=== PATIENT | female | born 1985 | race Caucasian/White ===

== ENCOUNTER 2017-08-30 12:25 | Emergency (ER) | payer OTHER ==
[~2017-08-30] VITALS: Ht 167.6 cm; Wt 89.9 kg
[2017-08-30 12:31] VITALS: Ht 167.6 cm; Wt 89.9 kg
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
[2017-08-30 13:37] VITALS: BP 112/77; PULSE 114; TEMP 36.8; O2SAT 93
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
== END 2017-08-30 13:53 | disposition home or self-care (01) ==
LOC: EDBD 12:25 → C.EDA 12:27
DX: S39.012A Strain of muscle, fascia and tendon of lower back, initial encounter (principal); S80.12XA Contusion of left lower leg, initial encounter; R10.9 Unspecified abdominal pain; V43.52XA Car driver injured in collision with other type car in traffic accident, initial encounter

== ENCOUNTER 2019-09-01 16:08 | Inpatient (IN) ==
--- OUTSIDE RECORDS SUMMARY | 2019-09-01 16:12 | External Medical Summary | Continuity of Care Document ---
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) Hyperprolactinemia (253.1) (E22.1) Empty sella (253.8) (E23.6) Decreased testosterone level (790.99) (R79.89) Allergies and Adverse Reactions Demerol TABS (Adverse Event) Reaction: A naphylaxis SEROquel TABS (Allergy) Reaction: Syncop e Medications Rizatriptan Benzoate 10 MG Oral Tablet; TAKE 1 AT ONSET OF HEADACHE - JUNE REPEAT EVERY 2 HOURS NEEDED - MAX 2 PER 24 HOURS Start: Quantity: 12 Refills: 0 Baclofen 10 MG Oral Tablet; TAKE ONE TABLET BY MOUTH TWICE D AILY Start: 04-Jul-2017 Quantity: 60 Refills: 0 Diclofenac Sodium 75 MG Oral Tablet Delayed Release; Take 1 tablet twice daily Start: 04-Jul-2017 Refills: 1 60 Tablet Bottle Ferrous Sulfate 325 (65 Fe) MG Oral Tablet; TAKE 1 TABLET DA SHEA WITH FOOD. Start: 04-Jul-2017 Quantity: 30 Refills: 11 Magnesium Oxide 400 MG Oral Capsule; Take one capsule daily. Start: 04-Jul-2017 Quantity: 30 Refills: 5 Methadone HCl - 40 MG Oral Tablet Soluble; TAKE 1 TABLET MARINA LY DIRECTED. Start: 04-Jul-2017 Refills: 0 Omeprazole 20 MG Oral Capsule Delayed Re lease; TAKE 1 CAPSULE DAILY EVERY MORNING BEFORE BREAKFAST. Start: 04-Jul-2017 Quantity: 30 Refills: 1 Procedures History of Section Status: Comp leted History of lumbar nerve ablation Status: Completed Immunizations PPD On: 22-Nov-2005 Tdap (Boostrix) On: 21-Oct-2015 Influenza On: 16-Nov-2016 Family History Mother Family history of arthritis (V17.7) (Z82.61) Status: Active Family history of emphysema (V17.6) (Z82.5) Status: Active Father Family history of malignant neoplasm of colon (V16.0) (Z80.0 ) Status: Active Grandparent Family history of malignant neoplasm (V16.9) (Z80.9) Status: Active Family history of Cancer of lymphatic and hematopoietic tiss ue Status: Active (202.80) (C96.9) Family history of malignant neoplasm of ovary (V16.41) (Z80. 41) Status: Active Family history of cerebrovascular accident (CVA) (V17.1) (Z8 2.3) Status: Active aunt Family history of multiple sclerosis (V17.2) (Z82.0) Status: Active Family history of cardiac disorder (V17.49) (Z82.49) Status: Active Social History - Smoking Status Never smoked tobacco Plan of Treatment Planned Observations Planned Goals not documented Results No Known Results Results not documented Encounters Appointment; Henrietta Villegas PA-C 12-Jul-2017 11:00 Encounter Diagnosis: Problem not documented
--- OUTSIDE RECORDS SUMMARY | 2019-09-01 16:12 | External Medical Summary | Continuity of Care Document ---
:1985 Author Name Ganesh Brito Address Unavailable Unavailable , Care Team Providers Name Role Phone Nelly ZAYDA Unavailable [email or web address] Assessed Problems:Encounter for preventive health examination [...] SEROquel TABS (Allergy) Reaction: Syncop e Medications Baclofen 10 MG Oral Tablet; TAKE ONE [...] BREAKFAST. Start: 04-Jul-2017 Quantity: 30 Refills: 1 Rizatriptan Benzoate 10 MG Oral Tablet; TAKE 1 AT ONSET OF HEADACHE - JUNE REPEAT EVERY 2 HOURS NEEDED - MAX 2 PER 24 HOURS Start: Quantity: 12 Refills: 0 Procedures History of Section Status: Comp leted [...]
[2019-09-01] MEDS ORDERED: SODIUM CHLORIDE 0.9% 1000ML 2,000 ML IV ONE (18:24)
[2019-09-01] MEDS ORDERED: ACETAMINOPHEN 1,000 MG/100 ML VIAL IV STA (18:24)
[2019-09-01 18:41] LABS: Appearance Urine Clear (Clear); Bacteria Urine Automated Negative (Negative); Bilirubin Urine Negative (Negative); Blood Urine 3+ (Negative); Color Urine Yellow; Epithelial Cell Urine Auto >30 /lpf (0-5); Glucose Urine UA Negative (Negative); Ketones Urine Negative (Negative); Leukocyte Esterase Urine 1+ (Negative); Nitrite Urine Negative (Negative); Protein Urine Negative (Negative); RBC Urine Automated >30 /hpf (0-4); Urobilinogen Urine Negative (Negative)
--- NOTE | 2019-09-01 18:44 | Emergency Department Note ---
Impression & Plan Endometritis following delivery, Complete miscarriage, Iron deficiency anemia, Rh(D) positive ED Provider Note NAME: ILIANA STOVER AGE: 34 SEX: F ARRIVES VIA: Walk-In INFORMANT: Patient, ED PROVIDER(S): Kendrick Duarte MD CHIEF COMPLAINT: Fevers, Abd pain, chest pain, shortness of breath. 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 She has not taken her temp erature but feels chills and body aches. On arrival the patient is uncomfortable but no acute distress, with temperature of 37.7, heart rate 107 and vital signs otherwise stable. On exam she has lower abdominal tenderness without guarding or rebound. Case was discussed Dr. Caraballo, [facility] PNEUMATIC SYSTEMS OPERATOR on-call at [facility] will testing was still pending. Agrees with empiric ABX and given patient's presentation agrees with plan for admission. Will updated upon completion of CTA for chest and CT abd pelvis. EKG without overt acute ischemia. Chest x-ray negative for acute process. WBC 4.1. H/H 7.6/25.7 which is stable from patient's discharge per the patient's report. Platelets 123K similar to prior value in [facility] system. Chemistry without acidosis. Lactate within normal limits. Electrolytes and LFTs unremarkable. Troponin negative/undetectable. Procalcitonin 0.61. UA with epithelial cells. CT a of the chest negative for PE or pneumonia. CT the abdomen pelvis demonstrates enlarged uterus with differential of hemorrhage versus retained products. On reevaluation the patient was improved appearing after IV fluid hydration, APAP, empiric antibiotics. She is agreeable with plan for admission. Dr. Zeger, OB- PNEUMATIC SYSTEMS OPERATOR was updated and will evaluate the patient at the bedside with plan for pelvic US and admission. Triage Nursing notes reviewed and agree them. Additional history obtained from [facility] Prior medical records reviewed Vital Signs: reviewed and remarkable for no significant abnormalities Differential diagnosis: Sepsis, UTI, pneumonia, metabolic, electrolyte abnormalities, cardiac sources, intracerebral event, toxicologic, neurologic, as well as other pathologies. ER treatment provided: See below. Diagnostics interpreted by me: ECG: Sinus tachycardia, 107 bpm, no ectopy, no overt ST elevation or depression, QTC 467, QRS 80. Cardiac Monitoring: An order for continuous cardiac monitoring was placed and demonstrated sinus tachycardia, 107 bpm, no ectopy. Laboratory studies: See below Imaging studies: XR chest 1V portable CLINICAL HISTORY: SEPSIS COMPARISON STUDY: No previous studies for comparison. FINDINGS: The cardiac and mediastinal contours are normal. There is no evidence of focal pulmonary consolidation. There is no evidence of failure. No pleural effusions are visualized.[ IMPRESSION: No active disease in the chest. -- CT abd pelvis IV con only CLINICAL HISTORY: lower abd pain, sepsis, miscarriage 08/29 COMPARISON STUDY: None. TECHNIQUE: The patient was scanned in a dynamic helical fashion during intr avenous administration of 120 cc of Optiray 320. A dose lowering technique was utilized adhering to the principles of ALARA. CT DOSE: FINDINGS: Lower chest: The heart is normal in size and configuration, without pericardial effusion. The lung bases and pleural spaces are clear. Liver: The contrast-enhanced liver is normal in size, contour, and attenuation. There is no intrahepatic biliary ductal dilatation. The hepatic veins and portal veins are patent. Gallbladder: Unremarkable. Spleen: The spleen is enlarged measuring 15.4 cm in length Pancreas: Unremarkable. Adrenal glands: Unremarkable. Kidneys: No solid renal masses are visualized. There is mild fullness the right renal collecting system, likely secondary to ureteral compression from enlarged uterus. Bowel: There are no transition zones indicate bowel obstruction. There is no evidence of acute diverticulitis. The appendix appears normal. Peritoneum: There is no intraperitoneal free air or abdominal ascites. Vasculature: The abdominal aorta is normal in course and caliber. Adenopathy: None. Pelvic viscera: The uterus is enlarged measuring 19.5 x 10.2 cm in the mid sagittal plane. The endometrium appears thickened and heterogeneous. The appearance is nonspecific and could represent hemorrhage or retained products of conception. There is trace gas within the upper vaginal vault/cervix. Skeletal structures: No destructive osseous lesions are seen. IMPRESSION: 1. No evidence of bowel obstruction. No evidence of free air 2. No evidence of acute diverticulitis. No evidence of acute appendicitis. 3. Mild dilatation the right renal collecting system, likely secondary to ureteral compression from enlarged uterus 4. Mild splenomegaly 5. Enlarged uterus measuring 19.5 x 10.2 cm in the sagittal plane. The end ometrium appears thickened and heterogeneous. This could represent hemorrhage or retained products of conception. Clinical correlation in this regard will be necessary. -- CT ANGIOGRAM OF THE CHEST CLINICAL HISTORY: Atypical chest pain. Sepsis. Possible pulmonary embolism. COMPARISON STUDY: Chest x-ray dated 09/01/2019 TECHNIQUE: Following the IV administration of 120 mL of Optiray-320, CT angiogram of the thorax was performed from the thoracic inlet to the lung bases utilizing the pulmonary embolus protocol. Images are reviewed in the axial, sagittal, and coronal planes. IV contrast was administered without complication. MIP imaging was performed. A dose lowering technique was utilized adhering to the principles of ALARA. CT DOSE: 1000.60 mGy.cm FINDINGS: There is mediastinal and hilar lymphadenopathy. An index subcarinal lymph node measures 22 mm in diameter. There was no evidence of thoracic aortic dilatation. There were no pulmonary artery filling defects to indicate acute pulmonary embolism. No pleural effusions are visualized. There is no evidence of focal pulmonary consolidation. There are several solid subpleural and perifissural subcentimeter left lower lobe pulmonary nodules. The largest measures 4 mm. In a low-risk patient, no further follow-up is indicated. Splenomegaly is suspected. IMPRESSION: 1. No evidence of acute pulmonary embolism 2. Unexplained mediastinal and hilar lymphadenopathy 3. Splenomegaly 4. No evidence of focal pulmonary consolidation Consultation(s): Dr. Caraballo, [facility] PNEUMATIC SYSTEMS OPERATOR. 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 She has not taken her temperature but feels chills and body aches. Of note, the patient was tested for COVID-19 and was negative on her admission. ROS: See above HPI for pertinent positives & negatives. A total of 10 systems reviewed and were otherwise negative. PAST MEDICAL HISTORY:See Below PAST SURGICAL HISTORY:See Below FAMILY HISTORY:See Below SOCIAL HISTORY:See Below HOME MEDICATIONS:See Below ALLERGIES:See Below VITALS:See Below PHYSICAL EXAMINATION: GENERAL: Awake, alert, well-appearing, in no distress HENT: Normocephalic, atraumatic. Oropharynx with dry mucous membranes and otherwise unremarkable. . EYES: Normal conjunctiva. Sclera non-icteric. NECK: Supple. No nuchal rigidity. FROM. No JVD. RESPIRATORY: Clear to auscultation. CARDIAC: Tachycardic rate, normal rhythm. Extremities warm and well perfused. Pulses equal. ABDOMEN: Soft, non-distended. Mild lower tenderness to palpation. No rebound or guarding. No masses. RECTAL: Deferred. MUSCULOSKELETAL: Chest examination reveals no tenderness. The back is symmetrical on inspection without obvious abnormality. There is no CVA tendernes s to palpation. No joint edema. LOWER EXTREMITIES: Calves are equal size bilaterally and non-tender. No edema. No discoloration. NEURO: Normal sensorium. No sensory or motor deficits noted. SKIN: No rash or jaundice noted. ED COURSE: Critical Care: I have personally spent greater than 75 minutes of critical care time in the direct management of this patient. This includes bedside care, interpretation of diagnostic studies, and testing, discussion with consultants, patient, and family members, and other required patient management activities. This 75 minutes is in excess of all separately billable procedures. Kendrick Duarte MD Past Med/Surg History Medical History Complete miscarriage (Acute) GERD (gastroesophageal reflux disease) Hepatitis C antibody test positive Hx of migraines Iron deficiency anemia (Acute) Methadone maintenance therapy patient PCOS (polycystic ovarian syndrome) Rh(D) positive (Acute) Splenomegaly Social History Smoking Status: Never smoker Preferred Language: Icelandic Feels Safe at Home: Yes Allergies Allergies Allergy/AdvReac Type Severity Reaction Status Date / Time quetiapine [From Seroquel] AdvReac Severe Sedation Verified 09/01/19 18:23 meperidine [From Demerol] AdvReac Unknown Hypotension Verified 09/01/19 18:23 Home Meds Home Medications Medication Instructions Recorded Confirmed [id number] fumarate-FA 1 tab PO DAILY 09/01/19 09/01/19 [] ferrous sulfate 325 mg PO DAILY 09/01/19 09/01/19 gabapentin 400 mg PO TID 09/01/19 09/01/19 methadone 52 mg PO DAILY 09/01/19 09/01/19 metronidazole 500 mg PO BID 09/01/19 09/01/19 ondansetron HCl 4 mg PO Q8H PRN 09/01/19 09/01/19 pantoprazole 40 mg PO DAILY 09/01/19 09/01/19 rizatriptan 10 mg PO DIRECTED PRN MDD 2 09/01/19 09/01/19 DOSES/24 HOURS tizanidine 6 mg PO Q6H PRN 09/01/19 09/01/19 topiramate 50 mg PO BID 09/01/19 09/01/19 Results & Data (ED) Vital Signs Vital Signs - 24 hr 09/01/19 16:18 09/01/19 18:34 09/01/19 19:28 Temperature 37.7 C H Temperature Source Oral Pulse Rate 107 H 94 H Pulse Rate [Bilateral Apical] Pulse Rhythm Regular Pulse Strength Normal Respiratory Rate 20 20 Respiratory Effort / Characteristics Non-Labored Spontaneous Non-Labored Respiratory Depth Normal Respiratory Pattern Regular Blood Pressure 135/86 Blood Pressure [Left Arm] Blood Pressure Mean 102 Blood Pressure Mean [Left Arm] Blood Pressure Position Sitting Pulse Oximetry 96 96 97 Oxygen Delivery Method Room Air Room Air Room Air Sepsis Recent Fever Within 48 Hours No Sepsis New/Unexplained Change in Mental Status No Sepsis Action Taken by Nursing No Action Required 09/01/19 19:29 09/01/19 20:23 09/01/19 21:11 Temperature Temperature Source Pulse Rate Pulse Rate [Bilateral Apical] 98 H 82 88 Pulse Rhythm Pulse Strength Respiratory Rate 20 18 18 Respiratory Effort / Characteristics Respiratory Depth Respiratory Pattern Blood Pressure Blood Pressure [Left Arm] 121/76 129/82 118/78 Blood Pressure Mean Blood Pressure Mean [Left Arm] 91 97 91 Blood Pressure Position Pulse Oximetry 97 95 97 Oxygen Delivery Method Room Air Room Air Room Air Sepsis Recent Fever Within 48 Hours Sepsis New/Unexplained Change in Mental Status Sepsis Action Taken by Nursing 09/01/19 22:30 09/01/19 22:31 Temperature Temperature Source Pulse Rate Pulse Rate [Bilateral Apical] 81 Pulse Rhythm Pulse Strength Respiratory Rate 20 Respiratory Effort / Characteristics Non-Labored Respiratory Depth Respiratory Pattern Blood Pressure Blood Pressure [Left Arm] 125/83 Blood Pressure Mean Blood Pressure Mean [Left Arm] 97 Blood Pressure Position Pulse Oximetry 97 Oxygen Delivery Method Room Air Sepsis Recent Fever Within 48 Hours Sepsis New/Unexplained Change in Mental Status Sepsis Action Taken by Nursing Laboratory Data Attestation: I reviewed the patient's lab results. Result diagrams: 09/01/19 18:45 09/01/19 18:45 Lab Results 09/01/19 09/01/19 09/01/19 Range/Units 16:29 18:45 18:45 WBC 4.15 L (4.8-10.8) K/uL RBC 3.76 L (4.2-5.4) M/uL Hgb 7.6 L (12.0-16.0) g/dL Hct 25.7 L (37-47) % MCV 68.4 L (80-100) fL MCH 20.2 L (25-34) pg MCHC 29.6 L (32-36) g/dL RDW Std Deviation 42.7 (36.4-46.3) fL RDW Coeff of Ignacio 17.2 H (11.5-14.5) % Plt Count 123 L (130-400) K/uL Immature Gran % (Auto) 0.2 % Neut % (Auto) 74.1 % Lymph % (Auto) 17.8 % Dickenson % (Auto) 6.7 % Eos % (Auto) 1.2 % Baso % (Auto) 0.0 % Neut # (Auto) 3.07 (1.4-6.5) K/uL Lymph # (Auto) 0.74 L (1.2-3.4) K/uL Dickenson # (Auto) 0.28 (0.11-0.59) K/uL Eos # (Auto) 0.05 (0-0.5) K/uL Baso # (Auto) 0.00 (0-0.2) K/uL Immature Gran # (Auto) 0.01 (0.00-0.02) K/uL Platelet Estimate Decreased L (Normal) Polychromasia 1+ Hypochromasia Present Microcytosis Present PT 10.4 (9.0-12.0) Seconds INR 1.0 (0.9-1.1) APTT 26.2 (21.0-31.0) Seconds PTT Ratio 0.9 Sodium (136-145) mmol/L Potassium (3.5-5.1) mmol/L Chloride (98-107) mmol/L Carbon Dioxide (21-32) mmol/L Anion Gap (3-11) BUN (7-18) mg/dl Creatinine (0.6-1.2) mg/dl Est Cr Clr Drug Dosing ml/min Est GFR ( Amer) Est GFR (Non-Af Amer) BUN/Creatinine Ratio (10-20) Glucose (70-99) mg/dl Lactate (0.4-2.0) mmol/L Calcium (8.5-10.1) mg/dl Phosphorus (2.5-4.9) mg/dl Magnesium (1.8-2.4) mg/dl Total Bilirubin (0.2-1) mg/dl Direct Bilirubin (0-0.2) mg/dl AST (15-37) U/L ALT (12-78) U/L Alkaline Phosphatase (45-117) U/L Troponin I (0-0.045) ng/ml Total Protein (6.4-8.2) gm/dl Albumin (3.4-5.0) gm/dl Globulin (2.5-4.0) gm/dl Albumin/Globulin Ratio (0.9-2) Procalcitonin (0-0.5) ng/ml HCG, Quant mIU/ml Urine Color Yellow Urine Appearance Clear (Clear) Urine pH 6.0 (4.5-7.5) Ur Specific Freer 1.010 (1.000-1.030) Urine Protein Negative (Negative) Urine Glucose (UA) Negative (Negative) Urine Ketones Negative (Negative) Urine Blood 3+ H (Negative) Urine Nitrite Negative (Negative) Urine Bilirubin Negative (Negative) Urine Urobilinogen Negative (Negative) Ur Leukocyte Esterase 1+ H (Negative) Urine WBC (Auto) 5-10 H (0-5) /hpf Urine RBC (Auto) >30 H (0-4) /hpf U Hyaline Cast (Auto) 1-5 (0-5) /lpf U Epithel Cells (Auto) >30 H (0-5) /lpf Urine Bacteria (Auto) Negative (Negative) Blood Type Antibody Screen 09/01/19 09/01/19 09/01/19 Range/Units 18:45 18:45 18:45 WBC (4.8-10.8) K/uL RBC (4.2-5.4) M/uL Hgb (12.0-16.0) g/dL Hct (37-47) % MCV (80-100) fL MCH (25-34) pg MCHC (32-36) g/dL RDW Std Deviation (36.4-46.3) fL RDW Coeff of Ignacio (11.5-14.5) % Plt Count (130-400) K/uL Immature Gran % (Auto) % Neut % (Auto) % Lymph % (Auto) % Dickenson % (Auto) % Eos % (Auto) % Baso % (Auto) % Neut # (Auto) (1.4-6.5) K/uL Lymph # (Auto) (1.2-3.4) K/uL Dickenson # (Auto) (0.11-0.59) K/uL Eos # (Auto) (0-0.5) K/uL Baso # (Auto) (0-0.2) K/uL Immature Gran # (Auto) (0.00-0.02) K/uL Platelet Estimate (Normal) Polychromasia Hypochromasia Microcytosis PT (9.0-12.0) Seconds INR (0.9-1.1) APTT (21.0-31.0) Seconds PTT Ratio Sodium 140 (136-145) mmol/L Potassium 3.8 (3.5-5.1) mmol/L Chloride 108 H (98-107) mmol/L Carbon Dioxide 26 (21-32) mmol/L Anion Gap 6.0 (3-11) BUN 7 (7-18) mg/dl Creatinine 0.68 (0.6-1.2) mg/dl Est Cr Clr Drug Dosing 109.9 ml/min Est GFR ( Amer) 130.4 Est GFR (Non-Af Amer) 112.5 BUN/Creatinine Ratio 10.1 (10-20) Glucose 89 (70-99) mg/dl Lactate 0.8 (0.4-2.0) mmol/L Calcium 8.4 L (8.5-10.1) mg/dl Phosphorus 3.4 (2.5-4.9) mg/dl Magnesium 1.9 (1.8-2.4) mg/dl Total Bilirubin 0.2 (0.2-1) mg/dl Direct Bilirubin < 0.1 (0-0.2) mg/dl AST 19 (15-37) U/L ALT 23 (12-78) U/L Alkaline Phosphatase 82 (45-117) U/L Troponin I < 0.015 (0-0.045) ng/ml Total Protein 6.8 (6.4-8.2) gm/dl Albumin 2.7 L (3.4-5.0) gm/dl Globulin 4.1 H (2.5-4.0) gm/dl Albumin/Globulin Ratio 0.7 L (0.9-2) Procalcitonin (0-0.5) ng/ml HCG, Quant 1272 mIU/ml Urine Color Urine Appearance (Clear) Urine pH (4.5-7.5) Ur Specific Freer (1.000-1.030) Urine Protein (Negative) Urine Glucose (UA) (Negative) Urine Ketones (Negative) Urine Blood (Negative) Urine Nitrite (Negative) Urine Bilirubin (Negative) Urine Urobilinogen (Negative) Ur Leukocyte Esterase (Negative) Urine WBC (Auto) (0-5) /hpf Urine RBC (Auto) (0-4) /hpf U Hyaline Cast (Auto) (0-5) /lpf U Epithel Cells (Auto) (0-5) /lpf Urine Bacteria (Auto) (Negative) Blood Type Antibody Screen 09/01/19 09/01/19 Range/Units 18:45 18:47 WBC (4.8-10.8) K/uL RBC (4.2-5.4) M/uL Hgb (12.0-16.0) g/dL Hct (37-47) % MCV (80-100) fL MCH (25-34) pg MCHC (32-36) g/dL RDW Std Deviation (36.4-46.3) fL RDW Coeff of Ignacio (11.5-14.5) % Plt Count (130-400) K/uL Immature Gran % (Auto) % Neut % (Auto) % Lymph % (Auto) % Dickenson % (Auto) % Eos % (Auto) % Baso % (Auto) % Neut # (Auto) (1.4-6.5) K/uL Lymph # (Auto) (1.2-3.4) K/uL Dickenson # (Auto) (0.11-0.59) K/uL Eos # (Auto) (0-0.5) K/uL Baso # (Auto) (0-0.2) K/uL Immature Gran # (Auto) (0.00-0.02) K/uL Platelet Estimate (Normal) Polychromasia Hypochromasia Microcytosis PT (9.0-12.0) Seconds INR (0.9-1.1) APTT (21.0-31.0) Seconds PTT Ratio Sodium (136-145) mmol/L Potassium (3.5-5.1) mmol/L Chloride (98-107) mmol/L Carbon Dioxide (21-32) mmol/L Anion Gap (3-11) BUN (7-18) mg/dl Creatinine (0.6-1.2) mg/dl Est Cr Clr Drug Dosing ml/min Est GFR ( Amer) Est GFR (Non-Af Amer) BUN/Creatinine Ratio (10-20) Glucose (70-99) mg/dl Lactate (0.4-2.0) mmol/L Calcium (8.5-10.1) mg/dl Phosphorus (2.5-4.9) mg/dl Magnesium (1.8-2.4) mg/dl Total Bilirubin (0.2-1) mg/dl Direct Bilirubin (0-0.2) mg/dl AST (15-37) U/L ALT (12-78) U/L Alkaline Phosphatase (45-117) U/L Troponin I (0-0.045) ng/ml Total Protein (6.4-8.2) gm/dl Albumin (3.4-5.0) gm/dl Globulin (2.5-4.0) gm/dl Albumin/Globulin Ratio (0.9-2) Procalcitonin 0.61 H (0-0.5) ng/ml HCG, Quant mIU/ml Urine Color Urine Appearance (Clear) Urine pH (4.5-7.5) Ur Specific Freer (1.000-1.030) Urine Protein (Negative) Urine Glucose (UA) (Negative) Urine Ketones (Negative) Urine Blood (Negative) Urine Nitrite (Negative) Urine Bilirubin (Negative) Urine Urobilinogen (Negative) Ur Leukocyte Esterase (Negative) Urine WBC (Auto) (0-5) /hpf Urine RBC (Auto) (0-4) /hpf U Hyaline Cast (Auto) (0-5) /lpf U Epithel Cells (Auto) (0-5) /lpf Urine Bacteria (Auto) (Negative) Blood Type O Positive Antibody Screen NEGATIVE Administered Medications Ioversol (Optiray 320 125ml) 120 ml IV ONCE PRN PRN Reason: Interaction Checking Stop: 09/05/19 20:52 Last Admin: 09/01/19 20:54 Dose: 120 ml Documented by: [id number] Discontinued Medications Sodium Chloride (Nss 1000ml) 2,000 mls @ 999 mls/hr IV .Q2H1M ONE Stop: 09/01/19 20:24 Last Infusion: 09/01/19 21:11 Dose: 0 mls/hr Documented by: [id number] Admin: 09/01/19 19:20 Dose: 999 mls/hr Documented by: [id number] Acetaminophen (Ofirmev) 1,000 mg in 100 mls @ 400 mls/hr IV NOW STA Stop: 09/01/19 18:38 Last Infusion: 09/01/19 20:22 Dose: 0 mls/hr Documented by: [id number] Admin: 09/01/19 19:21 Dose: 400 mls/hr Documented by: [id number] Vancomycin HCl 1,500 mg/ (Sodium Chloride) 530 mls @ 200 mls/hr IV NOW ONE Stop: 09/01/19 21:30 Last Infusion: 09/01/19 23:24 Dose: 0 mls/hr Documented by: [id number] Admin: 09/01/19 20:22 Dose: 200 mls/hr Documented by: [id number] Piperacillin Sod/Tazobactam Sod (Zosyn) 4.5 gm in 120 mls @ 240 mls/hr IV NOW ONE Stop: 09/01/19 19:21 Last Infusion: 09/01/19 20:22 Dose: 0 mls/hr Documented by: [id number] Admin: 09/01/19 19:21 Dose: 240 mls/hr Documented by: [id number] Ampicillin Sodium/Sulbactam Sodium 1,500 mg/ Sodium Chloride 104 mls @ 200 mls/hr IV ONE ONE; Protocol Stop: 09/01/19 23:31 Last Infusion: 09/02/19 00:04 Dose: 0 mls/hr Documented by: [id number] Admin: 09/01/19 23:31 Dose: 200 mls/hr Documented by: [id number] Blood Pressure Blood Pressure Findings: Normal blood pressure Discharge Plan Visit Data *Final* Discharge Date/Time: 09/02/19 00:04 Chief Complaint: Vaginal Bleeding Stated Complaint: MISCARRIAGE, ABD PAIN, CHEST PAIN ED Provider: Kendrick Duarte Discharge Problem: Endometritis following delivery, Complete miscarriage, Iron deficiency anemia, Rh(D) positive Patient Disposition: Admitted As Inpatient Discharge Instructions Interventions: ED Discharge Assessment Last Done: 09/02/19 00:04
[2019-09-01] MEDS ORDERED: PIPERACILLIN/TAZOBACTAM 4.5 GM/120 ML BAG IV ONE (18:52)
[2019-09-01] MEDS ORDERED: VANCOMYCIN HCL 1,500 MG in SODIUM CHLORIDE 0.9% 500 ML IV ONE (18:52)
[2019-09-01] MEDS ORDERED: VANCOMYCIN CONSULT ACTIVE PRN (18:52)
[2019-09-01] MEDS ORDERED: PIPERACILL/TAZOBAC CONSULT ACTIVE PRN (18:52)
[2019-09-01 18:57] LABS: Mean Corpuscular Hgb Conc 29.6 g/dL (32-36)
[2019-09-01 19:02] LABS: Hematocrit (blood only) 25.7 % (37-47); Hemoglobin 7.6 g/dL (12.0-16.0); Mean Corpuscular Hemoglobin 20.2 pg (25-34); Mean Corpuscular Volume 68.4 fL (80-100); RDW Coefficient of Variation 17.2 % (11.5-14.5); RDW Standard Deviation 42.7 fL (36.4-46.3); Red Blood Count 3.76 M/uL (4.2-5.4); White Blood Count 4.15 K/uL (4.8-10.8)
[2019-09-01 19:11] LABS: Partial Thromboplastin Ratio 0.9; Partial Thromboplastin Time 26.2 Seconds (21.0-31.0); Prothrombin Time 10.4 Seconds (9.0-12.0)
--- NOTE | 2019-09-01 19:13 | XRay Report ---
XR chest 1V portable CLINICAL HISTORY: SEPSIS COMPARISON STUDY: No previous studies for comparison. FINDINGS: The cardiac and mediastinal contours are normal. There is no evidence of focal pulmonary co nsolidation. There is no evidence of failure. No pleural effusions are visualized.[ IMPRESSION: No active disease in the chest. ACT 112: Negative or not required by law. Electronically signed by: Donald Burch M.D. 09/01/2019 7:11 PM
[2019-09-01 19:16] LABS: Platelet Count 123 K/uL (130-400)
[2019-09-01 19:17] LABS: Alanine Aminotransferase 23 U/L (12-78); Albumin Level 2.7 gm/dl (3.4-5.0); Aspartate Aminotransferase 19 U/L (15-37); BUN Creatinine Ratio 10.1 (10-20); Bilirubin Direct < 0.1 mg/dl (0-0.2); Blood Urea Nitrogen 7 mg/dl (7-18); Calcium 8.4 mg/dl (8.5-10.1); Carbon Dioxide 26 mmol/L (21-32); Chloride 108 mmol/L (98-107); Creatinine Clr Calc Pharmacy 109.9 ml/min; Eosinophils # (auto) 0.05 K/uL (0-0.5); Eosinophils % (auto) 1.2 %; Est GFR (African American) 130.4; Est GFR (Non-African American) 112.5; Glucose 89 mg/dl (70-99); Hypochromasia Present; Immature Granulocytes # (auto) 0.01 K/uL (0.00-0.02); Immature Granulocytes % (auto) 0.2 %; Lymphocytes # (auto) 0.74 K/uL (1.2-3.4); Lymphocytes % (auto) 17.8 %; Magnesium 1.9 mg/dl (1.8-2.4); Microcytosis Present; Monocytes # (auto) 0.28 K/uL (0.11-0.59); Monocytes % (auto) 6.7 %; Neutrophils # (auto) 3.07 K/uL (1.4-6.5); Neutrophils % (auto) 74.1 %; Platelet Estimate Decreased (Normal); Polychromasia 1+; Potassium 3.8 mmol/L (3.5-5.1); Sodium 140 mmol/L (136-145)
[2019-09-01 19:23] LABS: Albumin Globulin Ratio 0.7 (0.9-2); Alkaline Phosphatase 82 U/L (45-117); Bilirubin,Total 0.2 mg/dl (0.2-1); Globulin 4.1 gm/dl (2.5-4.0); Phosphorus 3.4 mg/dl (2.5-4.9); Total Protein 6.8 gm/dl (6.4-8.2); Troponin I < 0.015 ng/ml (0-0.045)
[2019-09-01] MEDS ORDERED: OPTIRAY 320 125ml IV PRN (20:53)
--- NOTE | 2019-09-01 21:05 | CT Scan Report ---
CT ANGIOGRAM OF THE CHEST CLINICAL HISTORY: Atypical chest pain. Sepsis. Possible pulmonary embolism. COMPARISON STUDY: Chest x-ray dated 09/01/2019 TECHNIQUE: Following the IV administration of 120 mL of Optiray-320, CT angiogram of the thorax was p erformed from the thoracic inlet to the lung bases utilizing the pulmonary embolus protocol. Images a re reviewed in the axial, sagittal, and coronal planes. IV contrast was administered without complica tion. MIP imaging was performed. A dose lowering technique was utilized adhering to the principles o f ALARA. CT DOSE: 1000.60 mGy.cm FINDINGS: There is mediastinal and hilar lymphadenopathy. An index subcarinal lymph node measures 22 mm in diam eter. There was no evidence of thoracic aortic dilatation. There were no pulmonary artery filling defects to indicate acute pulmonary embolism. No pleural effusions are visualized. There is no evidence of focal pulmonary consolidation. There are several solid subpleural and perifissural subcentimeter left lower lobe pulmonary nodules. The largest measures 4 mm. In a low-risk patient, no further follow-up is indicated. Splenomegaly is suspected. IMPRESSION: 1. No evidence of acute pulmonary embolism 2. Unexplained mediastinal and hilar lymphadenopathy 3. Splenomegaly 4. No evidence of focal pulmonary consolidation ACT 112: Negative or not required by law. Electronically signed by: Donald Burch M.D. 09/01/2019 9:04 PM
--- NOTE | 2019-09-01 21:15 | CT Scan Report ---
CT abd pelvis IV con only CLINICAL HISTORY: lower abd pain, sepsis, miscarriage 08/29 COMPARISON STUDY: None. TECHNIQUE: The patient was scanned in a dynamic helical fashion during intravenous administration of 120 cc of Optiray 320. A dose lowering technique was utilized adhering to the principles of ALARA. CT DOSE: FINDINGS: Lower chest: The heart is normal in size and configuration, without pericardial effusion. The lung ba ses and pleural spaces are clear. Liver: The contrast-enhanced liver is normal in size, contour, and attenuation. There is no intrahepa tic biliary ductal dilatation. The hepatic veins and portal veins are patent. Gallbladder: Unremarkable. Spleen: The spleen is enlarged measuring 15.4 cm in length Pancreas: Unremarkable. Adrenal glands: Unremarkable. Kidneys: No solid renal masses are visualized. There is mild fullness the right renal collecting syst em, likely secondary to ureteral compression from enlarged uterus. Bowel: There are no transition zones indicate bowel obstruction. There is no evidence of acute divert iculitis. The appendix appears normal. Peritoneum: There is no intraperitoneal free air or abdominal ascites. Vasculature: The abdominal aorta is normal in course and caliber. Adenopathy: None. Pelvic viscera: The uterus is enlarged measuring 19.5 x 10.2 cm in the mid sagittal plane. The endome trium appears thickened and heterogeneous. The appearance is nonspecific and could represent hemorrha ge or retained products of conception. There is trace gas within the upper vaginal vault/cervix. Skeletal structures: No destructive osseous lesions are seen. IMPRESSION: 1. No evidence of bowel obstruction. No evidence of free air 2. No evidence of acute diverticulitis. No evidence of acute appendicitis. 3. Mild dilatation the right renal collecting system, likely secondary to ureteral compression from e nlarged uterus 4. Mild splenomegaly 5. Enlarged uterus measuring 19.5 x 10.2 cm in the sagittal plane. The endometrium appears thickened and heterogeneous. This could represent hemorrhage or retained products of conception. Clinical corre lation in this regard will be necessary. ACT 112: Negative or not required by law. Electronically signed by: Donald Burch M.D. 09/01/2019 9:13 PM
[2019-09-01] MEDS ORDERED: ACETAMINOPHEN 325 MG TAB PO PRN (22:36)
[2019-09-01] MEDS ORDERED: ONDANSETRON INJ 2 MG/ML 2 ML VIAL IV PRN (22:36)
--- NOTE | 2019-09-01 22:58 | History & Physical Report ---
Date of Service September 01, 2019 Assessment & Plan (1) Hepatitis C antibody test positive: Present on Admission?: Yes (2) Splenomegaly: Present on Admission?: Yes (3) Iron deficiency anemia: Present on Admission?: Yes (4) GERD (gastroesophageal reflux disease): Present on Admission?: No (5) Methadone maintenance therapy patient: Present on Admission?: Yes (6) Hx of migraines: Present on Admission?: No (7) PCOS (polycystic ovarian syndrome): Present on Admission?: No (8) Complete miscarriage: Present on Admission?: No (9) Rh(D) positive: Present on Admission?: Yes (10) Endometritis following delivery: IV antibiotics Present on Admission?: Yes Admission and Anticipated Discharge Date Admission Date: 09/01/19 Anticipated date of discharge: 09/02/19 History of Present Illness Chief Complaint: vaginal bleeding Primary Care Provider: Brady Rebolledo [id number] who presents tonight to [facility] after being discharged from [facility] last PM after undergoing second trimester breech delivery for PPROM at 17 weeks 2 days ago on Sunday. Patient had some bleeding post delivery and was discharged yesterday on antibiotics but did not pick them up. She presents with fever, abdominal pain and chest pain. Allergies Allergy/AdvReac Type Severity Reaction Status Date / Time quetiapine [From Seroquel] AdvReac Severe Sedation Verified 09/01/19 18:23 meperidine [From Demerol] AdvReac Unknown Hypotension Verified 09/01/19 18:23 Home Medications Home Medications Medication Instructions Recorded Confirmed Type [id number] fumarate-FA 1 tab PO DAILY 09/01/19 09/01/19 History [] ferrous sulfate 325 mg PO DAILY 09/01/19 09/01/19 History gabapentin 400 mg PO TID 09/01/19 09/01/19 History methadone 52 mg PO DAILY 09/01/19 09/01/19 History metronidazole 500 mg PO BID 09/01/19 09/01/19 History ondansetron HCl 4 mg PO Q8H PRN 09/01/19 09/01/19 History pantoprazole 40 mg PO DAILY 09/01/19 09/01/19 History rizatriptan 10 mg PO DIRECTED PRN MDD 2 09/01/19 09/01/19 History DOSES/24 HOURS tizanidine 6 mg PO Q6H PRN 09/01/19 09/01/19 History topiramate 50 mg PO BID 09/01/19 09/01/19 History Past Med/Surg History Medical History Complete miscarriage GERD (gastroesophageal reflux disease) Hepatitis C antibody test positive Hx of migraines Iron deficiency anemia Methadone maintenance therapy patient PCOS (polycystic ovarian syndrome) Rh(D) positive Splenomegaly Social History Smoking Status: Never smoker Preferred Language: Slovak Feels Safe at Home: Yes Review of Systems Review of Systems: All systems reviewed & are unremarkable except as noted in HPI & below Physical Exam Constitutional: WD/WN, vitals as above appears somewhat pale due to recent blood loss from delivery Eyes: PERRL, conjunctivae normal, anicteric sclerae ENMT: external ear and nose normal, oropharynx normal Respiratory: normal respiratory effort, lungs clear to auscultation Gastrointestinal (Abdomen): normal bowel sounds, soft, nontender, no hepatosplenomegaly Musculoskeletal: no cyanosis or clubbing, extremities motor strength 5/5 no edema neg Bear's Skin: no rashes, warm and dry Neurologic: CN's II-XI intact bilaterally Results & Data Results & Data ([facility]) Vital Signs (Past 12 Hours) Vital Signs Temp Pulse Pulse Resp BP BP Pulse Ox 09/01/19 22:31 81 20 125/83 97 09/01/19 21:11 88 18 118/78 97 09/01/19 20:23 82 18 129/82 95 09/01/19 19:29 98 H 20 121/76 97 09/01/19 19:28 94 H 20 97 09/01/19 18:34 96 09/01/19 16:18 37.7 C H 107 H 20 135/86 96 Diagnostic Findings Laboratory Results - last 48 hr 09/01/19 09/01/19 09/01/19 16:29 18:45 18:45 WBC 4.15 L RBC 3.76 L Hgb 7.6 L Hct 25.7 L MCV 68.4 L MCH 20.2 L MCHC 29.6 L RDW Std Deviation 42.7 RDW Coeff of Ignacio 17.2 H Plt Count 123 L Immature Gran % (Auto) 0.2 Neut % (Auto) 74.1 Lymph % (Auto) 17.8 [place] % (Auto) 6.7 Eos % (Auto) 1.2 Baso % (Auto) 0.0 Neut # (Auto) 3.07 Lymph # (Auto) 0.74 L [place] # (Auto) 0.28 Eos # (Auto) 0.05 Baso # (Auto) 0.00 Immature Gran # (Auto) 0.01 Platelet Estimate Decreased L Polychromasia 1+ Hypochromasia Present Microcytosis Present PT 10.4 INR 1.0 APTT 26.2 PTT Ratio 0.9 Sodium Potassium Chloride Carbon Dioxide Anion Gap BUN Creatinine Est Cr Clr Drug Dosing Est GFR ( Amer) Est GFR (Non-Af Amer) BUN/Creatinine Ratio Glucose Lactate Calcium Phosphorus Magnesium Total Bilirubin Direct Bilirubin AST ALT Alkaline Phosphatase Troponin I Total Protein Albumin Globulin Albumin/Globulin Ratio Procalcitonin HCG, Quant Urine Color Yellow Urine Appearance Clear Urine pH 6.0 Ur Specific Mather 1.010 Urine Protein Negative Urine Glucose (UA) Negative Urine Ketones Negative Urine Blood 3+ H Urine Nitrite Negative Urine Bilirubin Negative Urine Urobilinogen Negative Ur Leukocyte Esterase 1+ H Urine WBC (Auto) 5-10 H Urine RBC (Auto) >30 H U Hyaline Cast (Auto) 1-5 U Epithel Cells (Auto) >30 H Urine Bacteria (Auto) Negative Blood Type Antibody Screen 09/01/19 09/01/19 09/01/19 18:45 18:45 18:45 WBC RBC Hgb Hct MCV MCH MCHC RDW Std Deviation RDW Coeff of Ignacio Plt Count Immature Gran % (Auto) Neut % (Auto) Lymph % (Auto) [place] % (Auto) Eos % (Auto) Baso % (Auto) Neut # (Auto) Lymph # (Auto) [place] # (Auto) Eos # (Auto) Baso # (Auto) Immature Gran # (Auto) Platelet Estimate Polychromasia Hypochromasia Microcytosis PT INR APTT PTT Ratio Sodium 140 Potassium 3.8 Chloride 108 H Carbon Dioxide 26 Anion Gap 6.0 BUN 7 Creatinine 0.68 Est Cr Clr Drug Dosing 109.9 Est GFR ( Amer) 130.4 Est GFR (Non-Af Amer) 112.5 BUN/Creatinine Ratio 10.1 Glucose 89 Lactate 0.8 Calcium 8.4 L Phosphorus 3.4 Magnesium 1.9 Total Bilirubin 0.2 Direct Bilirubin < 0.1 AST 19 ALT 23 Alkaline Phosphatase 82 Troponin I < 0.015 Total Protein 6.8 Albumin 2.7 L Globulin 4.1 H Albumin/Globulin Ratio 0.7 L Procalcitonin HCG, Quant 1272 Urine Color Urine Appearance Urine pH Ur Specific Mather Urine Protein Urine Glucose (UA) Urine Ketones Urine Blood Urine Nitrite Urine Bilirubin Urine Urobilinogen Ur Leukocyte Esterase Urine WBC (Auto) Urine RBC (Auto) U Hyaline Cast (Auto) U Epithel Cells (Auto) Urine Bacteria (Auto) Blood Type Antibody Screen 09/01/19 09/01/19 18:45 18:47 WBC RBC Hgb Hct MCV MCH MCHC RDW Std Deviation RDW Coeff of Ignacio Plt Count Immature Gran % (Auto) Neut % (Auto) Lymph % (Auto) [place] % (Auto) Eos % (Auto) Baso % (Auto) Neut # (Auto) Lymph # (Auto) [place] # (Auto) Eos # (Auto) Baso # (Auto) Immature Gran # (Auto) Platelet Estimate Polychromasia Hypochromasia Microcytosis PT INR APTT PTT Ratio Sodium Potassium Chloride Carbon Dioxide Anion Gap BUN Creatinine Est Cr Clr Drug Dosing Est GFR ( Amer) Est GFR (Non-Af Amer) BUN/Creatinine Ratio Glucose Lactate Calcium Phosphorus Magnesium Total Bilirubin Direct Bilirubin AST ALT Alkaline Phosphatase Troponin I Total Protein Albumin Globulin Albumin/Globulin Ratio Procalcitonin 0.61 H HCG, Quant Urine Color Urine Appearance Urine pH Ur Specific Mather Urine Protein Urine Glucose (UA) Urine Ketones Urine Blood Urine Nitrite Urine Bilirubin Urine Urobilinogen Ur Leukocyte Esterase Urine WBC (Auto) Urine RBC (Auto) U Hyaline Cast (Auto) U Epithel Cells (Auto) Urine Bacteria (Auto) Blood Type O Positive Antibody Screen NEGATIVE Lab Results OB Labs: Blood Type O Positive 09/01/19 Antibody Screen NEGATIVE 09/01/19 Hemoglobin 7.6 g/dL (12.0-16.0) L 09/01/19 Hematocrit 25.7 % (37-47) L 09/01/19 Mean Corpuscular Volume 68.4 fL (80-100) L 09/01/19 Platelet Count 123 K/uL (130-400) L 09/01/19 OB Optional Labs: No Data to Display Code Status & VTE Plan VTE Prophylaxis Plan VTE Prophylaxis will be ordered: No
[2019-09-01] MEDS ORDERED: AMPICILLIN/SULBACTAM SOD 1,500 MG in 0.9 % SODIUM CHLORIDE 100 ML IV ONE (23:00)
[2019-09-02] MEDS: TIZANIDINE HCL 4 MG TABLET PO PRN ×3 (01:51→21:53)
[2019-09-02] MEDS: GABAPENTIN 400 MG CAP PO SCH ×3 (01:53→21:19)
[2019-09-02] MEDS: AMPICILLIN/SULBACTAM SOD 1,500 MG in 0.9 % SODIUM CHLORIDE 100 ML IV SCH ×4 (06:05→23:30)
[2019-09-02] MEDS: IBUPROFEN 600 MG TAB PO PRN ×2 (06:38→16:58)
--- NOTE | 2019-09-02 06:59 | Ultrasound Report ---
PELVIC ULTRASOUND CLINICAL HISTORY: Evaluate for retained placenta. Miscarriage August 30, 2019. COMPARISON STUDY: CT of the abdomen and pelvis September 01, 2019. TECHNIQUE: Transabdominal and transvaginal sonography of the pelvis was performed. FINDINGS: Uterus measures 17.8 x 8.9 x 10.9 cm. The endometrium is thickened and heterogeneous, measu ring 2.2 cm in thickness. There is mobile debris within the endometrial canal. No areas of increased vascularity within the endometrium are noted. The right ovary is normal, measuring 3.8 x 1.9 x 2.2 cm . There is color flow within the right ovary. The left ovary was not visualized. IMPRESSION: 1. Enlarged uterus with thickened, heterogeneous endometrium which contains mobile debris without inc reased vascularity. Mild retained products of conception cannot be excluded. 2. Nonvisualization of the left ovary. Normal sonographic appearance of the right ovary. ACT 112: Negative or not required by law. Electronically signed by: Linwood Bro M.D. 09/02/2019 6:58 AM
[2019-09-02] MEDS: SODIUM CHLORIDE 0.9% 1000ML 1,000 ML IV SCH ×2 (07:00→17:00)
[2019-09-02 07:17] LABS: Basophils # (auto) 0.01 K/uL (0-0.2); Basophils % (auto) 0.3 %; Eosinophils # (auto) 0.07 K/uL (0-0.5); Eosinophils % (auto) 1.9 %; Hematocrit (blood only) 27.2 % (37-47); Hemoglobin 7.9 g/dL (12.0-16.0); Immature Granulocytes # (auto) 0.03 K/uL (0.00-0.02); Immature Granulocytes % (auto) 0.8 %; Lymphocytes # (auto) 0.82 K/uL (1.2-3.4); Lymphocytes % (auto) 22.3 %; Mean Corpuscular Hemoglobin 20.4 pg (25-34); Mean Corpuscular Volume 70.1 fL (80-100); Mean Platelet Volume 10.8 fL (7.4-10.4); Monocytes # (auto) 0.28 K/uL (0.11-0.59); Monocytes % (auto) 7.6 %; Neutrophils # (auto) 2.47 K/uL (1.4-6.5); Neutrophils % (auto) 67.1 %; Platelet Count 153 K/uL (130-400); RDW Coefficient of Variation 17.6 % (11.5-14.5); RDW Standard Deviation 45.1 fL (36.4-46.3); Red Blood Count 3.88 M/uL (4.2-5.4); White Blood Count 3.68 K/uL (4.8-10.8)
[2019-09-02 07:55] LABS: Albumin Level 2.7 gm/dl (3.4-5.0); BUN Creatinine Ratio 9.7 (10-20); Calcium 8.4 mg/dl (8.5-10.1); Creatinine Clr Calc Pharmacy 133.4 ml/min; Potassium 3.6 mmol/L (3.5-5.1)
[2019-09-02 07:57] LABS: Microcytosis Present
[2019-09-02 07:58] LABS: Albumin Globulin Ratio 0.7 (0.9-2); Bilirubin,Total 0.2 mg/dl (0.2-1); Total Protein 6.7 gm/dl (6.4-8.2)
[2019-09-02] MEDS: FERROUS SULFATE 325 MG TAB PO SCH ×2 (08:07→16:59)
[2019-09-02] MEDS: METHADONE ORAL SOLN 2 MG/ML PO SCH (08:59)
[2019-09-02] MEDS: PATIENT'S OWN CONTROLLED MED PO SCH (09:15)
--- NOTE | 2019-09-02 10:34 | Gynecologic Progress Note ---
Date of Service September 02, 2019 Assessment & Plan Admission and Anticipated Discharge Date Admission Date: September 01, 2019 Anticipated date of discharge: 09/02/19 Subjective PPD #3 s/p endomyometritis after 17 week delivery pt on antibx and afebrile Pelvic sono showed ? small retained products vrs clots Pt has very little bleeding plan Cytotec and monitor bleeding discussed possible D&E if bleeding persists continue antibx therapy continue iron therapy Results & Data ([facility]) Vital Signs (Past 12 Hours) Vital Signs Temp Pulse Resp BP Pulse Ox 09/02/19 07:00 36.5 C 71 20 103/52 L 98 09/02/19 04:35 36.9 C 71 16 98/59 L 09/02/19 00:30 37.1 C 85 18 132/89 96 09/01/19 23:35 36.7 C 101 H 20 125/83 98 09/01/19 22:31 81 20 125/83 97
[2019-09-02] MEDS: miSOPROStoL 200 MCG TAB PO SCH ×2 (11:41→21:20)
[2019-09-02] MEDS: PANTOprazole 40 MG TAB PO SCH (14:24)
[2019-09-03] MEDS: SODIUM CHLORIDE 0.9% 1000ML 1,000 ML IV SCH ×3 (01:40→17:51)
[2019-09-03] MEDS ORDERED: Nursing to Pharmacy Communication SCH (05:00)
[2019-09-03] MEDS: METHADONE ORAL SOLN 2 MG/ML PO SCH ×2 (05:02→07:46)
[2019-09-03] MEDS: TIZANIDINE HCL 4 MG TABLET PO PRN ×3 (05:18→23:57)
[2019-09-03] MEDS: AMPICILLIN/SULBACTAM SOD 1,500 MG in 0.9 % SODIUM CHLORIDE 100 ML IV SCH ×3 (05:28→17:51)
[2019-09-03] MEDS: miSOPROStoL 200 MCG TAB PO SCH (07:46)
[2019-09-03] MEDS: FERROUS SULFATE 325 MG TAB PO SCH ×2 (07:46→17:04)
[2019-09-03] MEDS: GABAPENTIN 400 MG CAP PO SCH ×3 (07:47→21:01)
[2019-09-03] MEDS: PATIENT'S OWN CONTROLLED MED PO SCH (07:47)
--- NOTE | 2019-09-03 09:00 | Obstetrical Progress Note ---
Date of Service September 03, 2019 Assessment & Plan Admission and Anticipated Discharge Date Admission Date: September 01, 2019 Anticipated date of discharge: 09/02/19 Physical Exam Physical Exam: abdomen soft and non tender no calf tenderness passing gas on iv antibiotics vaginal bleeding scant hgb 7.9 Results & Data ([facility]) Vital Signs (Past 12 Hours) Vital Signs Temp Pulse Resp BP Pulse Ox 09/03/19 05:35 126/93 09/03/19 04:40 36.6 C 87 17 144/90 H 100 09/02/19 23:30 37.0 C 68 16 116/79 98
[2019-09-03] MEDS: PANTOprazole 40 MG TAB PO SCH (09:11)
[2019-09-03] MEDS: IBUPROFEN 600 MG TAB PO PRN (23:58)
[2019-09-04] MEDS: AMPICILLIN/SULBACTAM SOD 1,500 MG in 0.9 % SODIUM CHLORIDE 100 ML IV SCH ×2 (00:11→05:58)
[2019-09-04] MEDS: SODIUM CHLORIDE 0.9% 1000ML 1,000 ML IV SCH (02:59)
[2019-09-04] MEDS ORDERED: SODIUM CHLORIDE 0.9% 1000ML 1,000 ML IV SCH (06:00)
--- NOTE | 2019-09-04 07:53 | Electrocardiogram Report ---
Test Reason : Blood Pressure : / mmHG Vent. Rate : 107 BPM Atrial Rate : 107 BPM P-R Int : 114 ms QRS Dur : 080 ms QT Int : 350 ms P-R-T Axes : 037 003 012 degrees QTc Int : 467 ms Poor data quality, interpretation may be adversely affected Sinus tachycardia Moderate voltage criteria for LVH, may be normal variant Borderline ECG No previous ECGs available Confirmed by Austin Espinosa ([id number]) on 09/04/2019 7:53:03 AM Referred By: REFERRED SELF Confirmed By:Austin Espinosa
--- NOTE | 2019-09-04 09:02 | Obstetrical Progress Note ---
Date of Service September 04, 2019 Assessment & Plan Admission and Anticipated Discharge Date Admission Date: September 01, 2019 Anticipated date of discharge: 09/02/19 Subjective Patient is seen and examined. She feels well, no complaints other being upset about what happened on 08/29 at [facility]. She lost her baby on 08/29 and was discharged home on 08/30. Came back to ER on 08/31 with CP and admitted for endometritis. She has received IV AB for over 48 hours. Ambulating without dizziness. Voiding without difficulty Tolerating regular diet with out N&V Bleeding is minimal, not saoking any pads After she took Cytotec she passed some cloths. No fever/ chills/ CP/ SOB/ N&V/ Leg pain Vital Signs Temp Pulse Pulse Resp BP BP Pulse Ox 09/04/19 07:47 37 C 81 18 135/88 100 09/04/19 00:00 36.9 C 84 18 122/86 09/03/19 20:15 36.9 C 72 16 114/80 99 09/03/19 16:34 37.2 C 90 16 134/90 100 09/03/19 13:00 37.2 C 91 H 18 134/47 L 97 Intake and Output 09/03/19 09/04/19 09/04/19 22:59 06:59 14:59 Intake Total 689.416 / 4874.500 1474.834 / 4874.500 Balance 689.416 / 3374.500 1474.834 / 3374.500 Intake: IV 689.416 / 3624.500 1474.834 / 3624.500 Unasyn 1,500 mg In Sodium 104 / 312 104 / 312 Chloride 100 ml @ 200 mls/hr IV Q6H AMY Rx#:[id number] Nss 1000ML 1,000 ml @ 125 mls/ 585.416 / 3312.500 1370.834 / 3312.500 hr IV .Q8H AMY Rx#:[id number] Lab Results 09/01/19 09/01/19 09/01/19 Range/Units 16:29 18:45 18:45 WBC 4.15 L (4.8-10.8) K/uL RBC 3.76 L (4.2-5.4) M/uL Hgb 7.6 L (12.0-16.0) g/dL Hct 25.7 L (37-47) % MCV 68.4 L (80-100) fL MCH 20.2 L (25-34) pg MCHC 29.6 L (32-36) g/dL RDW Std Deviation 42.7 (36.4-46.3) fL RDW Coeff of Ignacio 17.2 H (11.5-14.5) % Plt Count 123 L (130-400) K/uL MPV (7.4-10.4) fL Immature Gran % (Auto) 0.2 % Neut % (Auto) 74.1 % Lymph % (Auto) 17.8 % [place] % (Auto) 6.7 % Eos % (Auto) 1.2 % Baso % (Auto) 0.0 % Neut # (Auto) 3.07 (1.4-6.5) K/uL Lymph # (Auto) 0.74 L (1.2-3.4) K/uL [place] # (Auto) 0.28 (0.11-0.59) K/uL Eos # (Auto) 0.05 (0-0.5) K/uL Baso # (Auto) 0.00 (0-0.2) K/uL Immature Gran # (Auto) 0.01 (0.00-0.02) K/uL Platelet Estimate Decreased L (Normal) Polychromasia 1+ Hypochromasia Present Microcytosis Present PT 10.4 (9.0-12.0) Seconds INR 1.0 (0.9-1.1) APTT 26.2 (21.0-31.0) Seconds PTT Ratio 0.9 Sodium (136-145) mmol/L Potassium (3.5-5.1) mmol/L Chloride (98-107) mmol/L Carbon Dioxide (21-32) mmol/L Anion Gap (3-11) BUN (7-18) mg/dl Creatinine (0.6-1.2) mg/dl Est Cr Clr Drug Dosing ml/min Est GFR ( Amer) Est GFR (Non-Af Amer) BUN/Creatinine Ratio (10-20) Glucose (70-99) mg/dl Lactate (0.4-2.0) mmol/L Calcium (8.5-10.1) mg/dl Phosphorus (2.5-4.9) mg/dl Magnesium (1.8-2.4) mg/dl Total Bilirubin (0.2-1) mg/dl Direct Bilirubin (0-0.2) mg/dl AST (15-37) U/L ALT (12-78) U/L Alkaline Phosphatase (45-117) U/L Troponin I (0-0.045) ng/ml Total Protein (6.4-8.2) gm/dl Albumin (3.4-5.0) gm/dl Globulin (2.5-4.0) gm/dl Albumin/Globulin Ratio (0.9-2) Procalcitonin (0-0.5) ng/ml HCG, Quant mIU/ml Urine Color Yellow Urine Appearance Clear (Clear) Urine pH 6.0 (4.5-7.5) Ur Specific [place] 1.010 (1.000-1.030) Urine Protein Negative (Negative) Urine Glucose (UA) Negative (Negative) Urine Ketones Negative (Negative) Urine Blood 3+ H (Negative) Urine Nitrite Negative (Negative) Urine Bilirubin Negative (Negative) Urine Urobilinogen Negative (Negative) Ur Leukocyte Esterase 1+ H (Negative) Urine WBC (Auto) 5-10 H (0-5) /hpf Urine RBC (Auto) >30 H (0-4) /hpf U Hyaline Cast (Auto) 1-5 (0-5) /lpf U Epithel Cells (Auto) >30 H (0-5) /lpf Urine Bacteria (Auto) Negative (Negative) Blood Type Antibody Screen 09/01/19 09/01/19 09/01/19 Range/Units 18:45 18:45 18:45 WBC (4.8-10.8) K/uL RBC (4.2-5.4) M/uL Hgb (12.0-16.0) g/dL Hct (37-47) % MCV (80-100) fL MCH (25-34) pg MCHC (32-36) g/dL RDW Std Deviation (36.4-46.3) fL RDW Coeff of Ignacio (11.5-14.5) % Plt Count (130-400) K/uL MPV (7.4-10.4) fL Immature Gran % (Auto) % Neut % (Auto) % Lymph % (Auto) % [place] % (Auto) % Eos % (Auto) % Baso % (Auto) % Neut # (Auto) (1.4-6.5) K/uL Lymph # (Auto) (1.2-3.4) K/uL [place] # (Auto) (0.11-0.59) K/uL Eos # (Auto) (0-0.5) K/uL Baso # (Auto) (0-0.2) K/uL Immature Gran # (Auto) (0.00-0.02) K/uL Platelet Estimate (Normal) Polychromasia Hypochromasia Microcytosis PT (9.0-12.0) Seconds INR (0.9-1.1) APTT (21.0-31.0) Seconds PTT Ratio Sodium 140 (136-145) mmol/L Potassium 3.8 (3.5-5.1) mmol/L Chloride 108 H (98-107) mmol/L Carbon Dioxide 26 (21-32) mmol/L Anion Gap 6.0 (3-11) BUN 7 (7-18) mg/dl Creatinine 0.68 (0.6-1.2) mg/dl Est Cr Clr Drug Dosing 109.9 ml/min Est GFR ( Amer) 130.4 Est GFR (Non-Af Amer) 112.5 BUN/Creatinine Ratio 10.1 (10-20) Glucose 89 (70-99) mg/dl Lactate 0.8 (0.4-2.0) mmol/L Calcium 8.4 L (8.5-10.1) mg/dl Phosphorus 3.4 (2.5-4.9) mg/dl Magnesium 1.9 (1.8-2.4) mg/dl Total Bilirubin 0.2 (0.2-1) mg/dl Direct Bilirubin < 0.1 (0-0.2) mg/dl AST 19 (15-37) U/L ALT 23 (12-78) U/L Alkaline Phosphatase 82 (45-117) U/L Troponin I < 0.015 (0-0.045) ng/ml Total Protein 6.8 (6.4-8.2) gm/dl Albumin 2.7 L (3.4-5.0) gm/dl Globulin 4.1 H (2.5-4.0) gm/dl Albumin/Globulin Ratio 0.7 L (0.9-2) Procalcitonin (0-0.5) ng/ml HCG, Quant 1272 mIU/ml Urine Color Urine Appearance (Clear) Urine pH (4.5-7.5) Ur Specific [place] (1.000-1.030) Urine Protein (Negative) Urine Glucose (UA) (Negative) Urine Ketones (Negative) Urine Blood (Negative) Urine Nitrite (Negative) Urine Bilirubin (Negative) Urine Urobilinogen (Negative) Ur Leukocyte Esterase (Negative) Urine WBC (Auto) (0-5) /hpf Urine RBC (Auto) (0-4) /hpf U Hyaline Cast (Auto) (0-5) /lpf U Epithel Cells (Auto) (0-5) /lpf Urine Bacteria (Auto) (Negative) Blood Type Antibody Screen 09/01/19 09/01/19 09/02/19 Range/Units 18:45 18:47 06:52 WBC 3.68 L (4.8-10.8) K/uL RBC 3.88 L (4.2-5.4) M/uL Hgb 7.9 L (12.0-16.0) g/dL Hct 27.2 L (37-47) % MCV 70.1 L (80-100) fL MCH 20.4 L (25-34) pg MCHC 29.0 L (32-36) g/dL RDW Std Deviation 45.1 (36.4-46.3) fL RDW Coeff of Ignacio 17.6 H (11.5-14.5) % Plt Count 153 (130-400) K/uL MPV 10.8 H (7.4-10.4) fL Immature Gran % (Auto) 0.8 % Neut % (Auto) 67.1 % Lymph % (Auto) 22.3 % [place] % (Auto) 7.6 % Eos % (Auto) 1.9 % Baso % (Auto) 0.3 % Neut # (Auto) 2.47 (1.4-6.5) K/uL Lymph # (Auto) 0.82 L (1.2-3.4) K/uL [place] # (Auto) 0.28 (0.11-0.59) K/uL Eos # (Auto) 0.07 (0-0.5) K/uL Baso # (Auto) 0.01 (0-0.2) K/uL Immature Gran # (Auto) 0.03 H (0.00-0.02) K/uL Platelet Estimate (Normal) Polychromasia Hypochromasia Microcytosis Present PT (9.0-12.0) Seconds INR (0.9-1.1) APTT (21.0-31.0) Seconds PTT Ratio Sodium (136-145) mmol/L Potassium (3.5-5.1) mmol/L Chloride (98-107) mmol/L Carbon Dioxide (21-32) mmol/L Anion Gap (3-11) BUN (7-18) mg/dl Creatinine (0.6-1.2) mg/dl Est Cr Clr Drug Dosing ml/min Est GFR ( Amer) Est GFR (Non-Af Amer) BUN/Creatinine Ratio (10-20) Glucose (70-99) mg/dl Lactate (0.4-2.0) mmol/L Calcium (8.5-10.1) mg/dl Phosphorus (2.5-4.9) mg/dl Magnesium (1.8-2.4) mg/dl Total Bilirubin (0.2-1) mg/dl Direct Bilirubin (0-0.2) mg/dl AST (15-37) U/L ALT (12-78) U/L Alkaline Phosphatase (45-117) U/L Troponin I (0-0.045) ng/ml Total Protein (6.4-8.2) gm/dl Albumin (3.4-5.0) gm/dl Globulin (2.5-4.0) gm/dl Albumin/Globulin Ratio (0.9-2) Procalcitonin 0.61 H (0-0.5) ng/ml HCG, Quant mIU/ml Urine Color Urine Appearance (Clear) Urine pH (4.5-7.5) Ur Specific [place] (1.000-1.030) Urine Protein (Negative) Urine Glucose (UA) (Negative) Urine Ketones (Negative) Urine Blood (Negative) Urine Nitrite (Negative) Urine Bilirubin (Negative) Urine Urobilinogen (Negative) Ur Leukocyte Esterase (Negative) Urine WBC (Auto) (0-5) /hpf Urine RBC (Auto) (0-4) /hpf U Hyaline Cast (Auto) (0-5) /lpf U Epithel Cells (Auto) (0-5) /lpf Urine Bacteria (Auto) (Negative) Blood Type O Positive Antibody Screen NEGATIVE 09/02/19 Range/Units 06:52 WBC (4.8-10.8) K/uL RBC (4.2-5.4) M/uL Hgb (12.0-16.0) g/dL Hct (37-47) % MCV (80-100) fL MCH (25-34) pg MCHC (32-36) g/dL RDW Std Deviation (36.4-46.3) fL RDW Coeff of Ignacio (11.5-14.5) % Plt Count (130-400) K/uL MPV (7.4-10.4) fL Immature Gran % (Auto) % Neut % (Auto) % Lymph % (Auto) % [place] % (Auto) % Eos % (Auto) % Baso % (Auto) % Neut # (Auto) (1.4-6.5) K/uL Lymph # (Auto) (1.2-3.4) K/uL [place] # (Auto) (0.11-0.59) K/uL Eos # (Auto) (0-0.5) K/uL Baso # (Auto) (0-0.2) K/uL Immature Gran # (Auto) (0.00-0.02) K/uL Platelet Estimate (Normal) Polychromasia Hypochromasia Microcytosis PT (9.0-12.0) Seconds INR (0.9-1.1) APTT (21.0-31.0) Seconds PTT Ratio Sodium 140 (136-145) mmol/L Potassium 3.6 (3.5-5.1) mmol/L Chloride 110 H (98-107) mmol/L Carbon Dioxide 26 (21-32) mmol/L Anion Gap 4.0 (3-11) BUN 5 L (7-18) mg/dl Creatinine 0.56 L (0.6-1.2) mg/dl Est Cr Clr Drug Dosing 133.4 ml/min Est GFR ( Amer) 139.0 Est GFR (Non-Af Amer) 120.0 BUN/Creatinine Ratio 9.7 L (10-20) Glucose 74 (70-99) mg/dl Lactate (0.4-2.0) mmol/L Calcium 8.4 L (8.5-10.1) mg/dl Phosphorus (2.5-4.9) mg/dl Magnesium (1.8-2.4) mg/dl Total Bilirubin 0.2 (0.2-1) mg/dl Direct Bilirubin (0-0.2) mg/dl AST 15 (15-37) U/L ALT 21 (12-78) U/L Alkaline Phosphatase 80 (45-117) U/L Troponin I (0-0.045) ng/ml Total Protein 6.7 (6.4-8.2) gm/dl Albumin 2.7 L (3.4-5.0) gm/dl Globulin 4.0 (2.5-4.0) gm/dl Albumin/Globulin Ratio 0.7 L (0.9-2) Procalcitonin (0-0.5) ng/ml HCG, Quant mIU/ml Urine Color Urine Appearance (Clear) Urine pH (4.5-7.5) Ur Specific [place] (1.000-1.030) Urine Protein (Negative) Urine Glucose (UA) (Negative) Urine Ketones (Negative) Urine Blood (Negative) Urine Nitrite (Negative) Urine Bilirubin (Negative) Urine Urobilinogen (Negative) Ur Leukocyte Esterase (Negative) Urine WBC (Auto) (0-5) /hpf Urine RBC (Auto) (0-4) /hpf U Hyaline Cast (Auto) (0-5) /lpf U Epithel Cells (Auto) (0-5) /lpf Urine Bacteria (Auto) (Negative) Blood Type Antibody Screen PE: General: Alert, orientedx3, NAD Abd: soft, NT, ND Perineum intact, no VB Ext; NT, no edema AP: 34 yo s/p after PPROM at 17+wks, ppd# 5 Admitted for pp endometritis, received IV AB over 48 hours Initial US on admission with 2.2 cm endometrium VSS Afebrile doing well Plan to repeat US for endometrium All questions were answered D/C home today with PO AB Results & Data ([facility]) Vital Signs (Past 12 Hours) Vital Signs Temp Pulse Pulse Resp BP BP Pulse Ox 09/04/19 07:47 37 C 81 18 135/88 100 09/04/19 00:00 36.9 C 84 18 122/86
[2019-09-04] MEDS: METHADONE ORAL SOLN 2 MG/ML PO SCH (09:05)
[2019-09-04] MEDS: FERROUS SULFATE 325 MG TAB PO SCH ×2 (09:05→17:26)
[2019-09-04] MEDS: GABAPENTIN 400 MG CAP PO SCH ×3 (09:05→22:26)
[2019-09-04] MEDS: TIZANIDINE HCL 4 MG TABLET PO PRN (09:06)
[2019-09-04] MEDS: PANTOprazole 40 MG TAB PO SCH (09:06)
[2019-09-04] MEDS: IBUPROFEN 600 MG TAB PO PRN (09:07)
[2019-09-04 09:31] LABS: Basophils # (auto) 0.01 K/uL (0-0.2); Basophils % (auto) 0.4 %; Eosinophils # (auto) 0.05 K/uL (0-0.5); Hematocrit (blood only) 31.3 % (37-47); Hemoglobin 9.3 g/dL (12.0-16.0); Immature Granulocytes # (auto) 0.05 K/uL (0.00-0.02); Lymphocytes # (auto) 0.84 K/uL (1.2-3.4); Lymphocytes % (auto) 33.1 %; Mean Corpuscular Hemoglobin 20.4 pg (25-34); Mean Corpuscular Hgb Conc 29.7 g/dL (32-36); Mean Corpuscular Volume 68.5 fL (80-100); Mean Platelet Volume 10.9 fL (7.4-10.4); Monocytes # (auto) 0.18 K/uL (0.11-0.59); Monocytes % (auto) 7.1 %; Neutrophils # (auto) 1.41 K/uL (1.4-6.5); Neutrophils % (auto) 55.4 %; Platelet Count 167 K/uL (130-400); RDW Coefficient of Variation 16.8 % (11.5-14.5); RDW Standard Deviation 41.4 fL (36.4-46.3); Red Blood Count 4.57 M/uL (4.2-5.4); White Blood Count 2.54 K/uL (4.8-10.8)
[2019-09-04 09:59] LABS: Hypochromasia Present; Microcytosis Present; Polychromasia 1+
--- NOTE | 2019-09-04 12:17 | Ultrasound Report ---
US pelvic complete HISTORY: 34 years-old Female follow up for ? retained POC recent spontaneous on 08/30/2019 w ith possible retained products of conception COMPARISON: Pelvic ultrasound 09/01/2019 TECHNIQUE: Multiple real-time sonographic images of the deep pelvic structures were obtained transabd ominally assessing grayscale appearance, and color flow FINDINGS: Enlarged heterogeneous post gravid uterus measures 14.0 x 9.4 x 9.3 cm. Endometrium is echogenic and mildly heterogeneous measuring up to 3.2 cm in thickness within the mid body and otherwise measuring up to approximately 2.3 cm at the fundus. There is mild vascularity noted within the areas of heterog eneous endometrium. No intrauterine or extrauterine gestation. Right ovary measures 2.5 x 2.6 x 1.9 cm with arterial inflow. The left ovary measures 3.1 x 2.2 x 1.9 cm with arterial inflow. No adnexal mass lesions. Transvaginal portion of the study was not conducte d per doctor's orders. IMPRESSION: 1. Enlarged postgravid appearance of the uterus. Uterus is heterogeneous and focally thickened within the mid body with subtle areas of vascular flow suspicious for possible retained products of concept ion. Correlate with pelvic exam findings and beta hCG analysis 2. Unremarkable sonographic appearance of the ovaries. ACT 112: Negative or not required by law. The above report was generated using voice recognition software. It may contain grammatical, syntax o r spelling errors. Electronically signed by: Meir Connolly M.D. 09/04/2019 12:15 PM
[2019-09-04] MEDS ORDERED: AMOXICILLIN/CLAVULANATE 500 MG TAB PO SCH (12:30)
--- NOTE | 2019-09-04 13:25 | Obstetrical Progress Note ---
Date of Service September 04, 2019 Assessment & Plan Admission and Anticipated Discharge Date Admission Date: September 01, 2019 Anticipated date of discharge: 09/02/19 Subjective Patient is back from US US suggesting retained POC, >3 cm heterogenous area Discussed options of surgery, suction, D&C under US guidance or Cytotec, BHCG counts and f/u US She decided to do have surgery today, just ate small lunch at 1230 I spoke with Anesthesia and they recommended to do at 8 pm Patient understands the risks of surgery as bleeding, infection, uterine perforation, injury to surrounding organs, more surgeries to correct, Asherman syndrome All questions were answered Results & Data ([facility]) Vital Signs (Past 12 Hours) Vital Signs Temp Pulse Resp BP Pulse Ox 09/04/19 07:47 37 C 81 18 135/88 100
--- NOTE | 2019-09-04 15:19 | Obstetrical Progress Note ---
Date of Service September 04, 2019 Assessment & Plan Admission and Anticipated Discharge Date Admission Date: September 01, 2019 Anticipated date of discharge: 09/02/19 Subjective Late entry from 1130 Abnormal lab results 09/04/19 Range/Units 09:16 WBC 2.54 L (4.8-10.8) K/uL Hgb 9.3 L (12.0-16.0) g/dL Hct 31.3 L (37-47) % MCV 68.5 L (80-100) fL MCH 20.4 L (25-34) pg MCHC 29.7 L (32-36) g/dL RDW Coeff of Ignacio 16.8 H (11.5-14.5) % MPV 10.9 H (7.4-10.4) fL Lymph # (Auto) 0.84 L (1.2-3.4) K/uL Immature Gran # (Auto) 0.05 H (0.00-0.02) K/uL I called hospitalist for a consult for leukopenia, he came to see her but she was not in the room ( went for US) Dr Jaffe called me back and he said he spoke to Dr Hernández from hematology and her WBCC could be suppressed from IV AB/ PCN/ Cephalosporin groups Recommended to hold on AB and okay with Metronidazole Plan to repeat CBC in a week Results & Data ([facility]) Vital Signs (Past 12 Hours) Vital Signs Temp Pulse Resp BP Pulse Ox 09/04/19 07:47 37 C 81 18 135/88 100
[2019-09-04] MEDS ORDERED: metroNIDAZOLE 500 MG/100 ML BAG IV ONE (19:30)
[2019-09-04] MEDS ORDERED: miSOPROStoL 200 MCG TAB ONE ×2 (19:47→19:49)
[2019-09-04] MEDS ORDERED: FERRIC SUBSULFATE 8 GM VIAL ONE (19:47)
[2019-09-04] MEDS ORDERED: ATROPINE SULFATE 0.1 MG/ML 10ML SYR IV PRN (20:09)
[2019-09-04] MEDS ORDERED: ONDANSETRON INJ 2 MG/ML 2 ML VIAL IV PRN (20:09)
[2019-09-04] MEDS ORDERED: ePHEDrine sulfate 50 MG/ML AMP IV PRN (20:09)
--- NOTE | 2019-09-04 20:11 | Anesthesiology Consultation ---
Date of Service September 04, 2019 Assessment & Plan Chart Review Chart Review: Acceptable Risk for Surgery and Patient NOT seen in Pre Admission Testing Consults Requested none Proposed Anesthesia Risk / Benefits Reviewed With: PT / POA / Parent / Guardian, Accepts Plan and Informed Consent Obtained History Surgery Operation Date: 09/04/19 14:40 Proposed Procedures p Dilation and Curettage with Ultrasound Guidance - Marleen Mcdaniels MD Height/Weight Height: 5 ft 2 in Weight: 77 kg Allergies Allergy/AdvReac Type Severity Reaction Status Date / Time quetiapine [From Seroquel] AdvReac Severe Sedation Verified 09/01/19 18:23 meperidine [From Demerol] AdvReac Unknown Hypotension Verified 09/01/19 18:23 Medications Home Medications Medication Instructions Recorded Confirmed Last Taken 1 tab PO DAILY 09/01/19 09/01/19 Unknown ferrous sulfate 325 mg PO DAILY 09/01/19 09/01/19 Unknown gabapentin 400 mg PO TID 09/01/19 09/01/19 Unknown methadone 52 mg PO DAILY 09/01/19 09/01/19 Unknown metronidazole 500 mg PO BID 09/01/19 09/01/19 Unknown ondansetron HCl 4 mg PO Q8H PRN 09/01/19 09/01/19 Unknown pantoprazole 40 mg PO DAILY 09/01/19 09/01/19 Unknown rizatriptan 10 mg PO DIRECTED PRN MDD 2 09/01/19 09/01/19 Unknown DOSES/24 HOURS tizanidine 6 mg PO Q6H PRN 09/01/19 09/01/19 Unknown topiramate 50 mg PO BID 09/01/19 09/01/19 Unknown amoxicillin-pot clavulanate 1 tab PO BID #20 tab 09/04/19 Unknown [Augmentin] ferrous sulfate 325 mg PO BIDM #60 tab 09/04/19 Unknown ibuprofen 600 mg PO Q6H PRN #30 tab 09/04/19 Unknown metronidazole 500 mg PO BID 14 Days #28 tab 09/04/19 Unknown Active Medications Generic Name Dose Route Start Last Admin Trade Name Freq PRN Reason Stop Dose Admin Amoxicillin/Clavulanate Potassium 1 tab 09/04/19 12:30 09/04/19 13:39 Augmentin 500mg PO 09/12/19 08:59 1 tab BID AMY Administration Ferrous Sulfate 325 mg 09/02/19 08:00 09/04/19 17:26 Feosol PO 10/02/19 07:59 325 mg BIDM AMY Administration Gabapentin 400 mg 09/02/19 09:00 09/04/19 13:39 Neurontin PO 10/02/19 08:59 400 mg TID AMY Administration Sodium Chloride 1,000 mls @ 125 mls/hr 09/02/19 06:30 09/04/19 05:58 Nss 1000ml IV 10/02/19 06:00 0 mls/hr .Q8H AMY Infusion Metronidazole 500 mg in 100 mls @ 100 mls/hr 09/04/19 19:30 09/04/19 19:16 Flagyl IV 09/04/19 20:29 100 mls/hr ONE ONE Administration Ibuprofen 600 mg 09/01/19 22:40 09/04/19 09:07 Motrin PO 10/01/19 22:39 600 mg Q6H PRN Administration Pain or Fever Ioversol 120 ml 09/01/19 20:53 09/01/19 20:54 Optiray 320 125ml IV 09/05/19 20:52 120 ml ONCE PRN Administration Interaction Checking Methadone HCl 52 mg 09/02/19 09:00 09/04/19 09:05 Methadone Hcl PO 09/16/19 08:59 52 mg QAM AMY Administration Non-Formulary Medication 1 ea 09/02/19 09:00 09/03/19 07:47 Patient's Own Controlled Med PO 09/16/19 08:59 Not Given DAILY AMY Pantoprazole Sodium 40 mg 09/02/19 13:10 09/04/19 09:06 Protonix PO 10/02/19 13:09 40 mg QAM AMY Administration Tizanidine HCl 6 mg 09/02/19 09:00 09/04/19 09:06 Zanaflex PO 10/02/19 08:59 6 mg Q6H PRN Administration muscle spasms NPO Date Last Intake of Fluids: 09/04/19 Time Last Intake of Fluids: 12:00 Date Last Intake of Solids: 09/04/19 Time Last Intake of Solids: 12:00 Last Intake of Solids Comment: chicken salad Past Medical History Medical History Complete miscarriage (Acute) GERD (gastroesophageal reflux disease) Hepatitis C antibody test positive Hx of migraines Iron deficiency anemia (Acute) Methadone maintenance therapy patient PCOS (polycystic ovarian syndrome) Rh(D) positive (Acute) Splenomegaly Exercise / Class Metabolic Activity II 4-5 Yardwork/Stairs/Walk up hill Past Anesthesia History No Hx of Anesthesia Complications and No Family Hx of Anesthesia Complications History of PONV No Hx of PONV and No Hx of Motion Sickness Social History Smoking Status: Never smoker Hx Alcohol Use: No Physical Exam Vital Signs Last Vital Signs Temp 36.8 C 09/04/19 16:02 Pulse 80 09/04/19 16:02 Resp 18 09/04/19 16:02 BP 128/80 09/04/19 16:02 Pulse Ox 94 09/04/19 16:02 ENMT Mouth: no dentition abnormality Thyromental Distance: > or= 3.5 Finger Breadths Mallampati Class: II Neck normal visual inspection Respiratory normal respiratory effort Auscultation: lungs clear to auscultation bilaterally Cardiovascular Rate/Rhythm: regular rate and regular rhythm Psychiatric Orientation: alert Testing Laboratory Results 09/04/19 09:16 09/02/19 06:52 PT 10.4 Seconds (9.0-12.0) 09/01/19 18:45 INR 1.0 (0.9-1.1) 09/01/19 18:45 APTT 26.2 Seconds (21.0-31.0) 09/01/19 18:45 HCG, Quant 1272 mIU/ml 09/01/19 18:45 Urine Color Yellow 09/01/19 16:29 Urine Appearance Clear (Clear) 09/01/19 16:29 Urine pH 6.0 (4.5-7.5) 09/01/19 16:29 Ur Specific [place] 1.010 (1.000-1.030) 09/01/19 16:29 Urine Protein Negative (Negative) 09/01/19 16:29 Urine Glucose (UA) Negative (Negative) 09/01/19 16:29 Urine Ketones Negative (Negative) 09/01/19 16:29 Urine Nitrite Negative (Negative) 09/01/19 16:29 Ur Leukocyte Esterase 1+ (Negative) H 09/01/19 16:29 Urine WBC (Auto) 5-10 /hpf (0-5) H 09/01/19 16:29 Urine RBC (Auto) >30 /hpf (0-4) H 09/01/19 16:29 U Hyaline Cast (Auto) 1-5 /lpf (0-5) 09/01/19 16:29 U Epithel Cells (Auto) >30 /lpf (0-5) H 09/01/19 16:29 Urine Bacteria (Auto) Negative (Negative) 09/01/19 16:29 Blood Type O Positive 09/01/19 18:47 Antibody Screen NEGATIVE 09/01/19 18:47 09/01/19 18:59 Aerobic Blood Culture - Preliminary Blood No growth in Aerobic bottle after 48 hours. Anaerobic Blood Culture - Preliminary No growth in Anaerobic bottle after 48 hours. 09/01/19 18:45 Aerobic Blood Culture - Preliminary Blood No growth in Aerobic bottle after 48 hours. Anaerobic Blood Culture - Preliminary No growth in Anaerobic bottle after 48 hours. 09/01/19 18:45 HCG, Quant 127
[2019-09-04] MEDS ORDERED: PROPOFOL IV EMULSION 10 MG/ML 20 ML VIAL IV ONE (20:21)
[2019-09-04] MEDS ORDERED: fentaNYL citrate 100 MCG/2 ML VIAL ONE ×3 (20:21→21:23)
[2019-09-04] MEDS ORDERED: METHYLERGONOVINE MALEATE 0.2 MG/ML AMP ONE (20:46)
--- NOTE | 2019-09-04 20:57 | Post Operative Brief Note ---
Immediate Post Op Note v1 Date of Surgery September 04, 2019 Pre & Post Diagnosis Operation Date: 09/04/19 14:40 Pre-Op Diagnosis: Retained Products of Conception Post-Op Diagnosis: Retained Products of Conception I identified the patient and participated in the time-out.: Yes Procedure Operation Date: 09/04/19 14:40 Actual Procedures p Exam Under Anesthesia, Dilation and Curettage with Ultrasound Guidance(Not Applicable) - Marleen Mcdaniels MD Surgeon Marleen Mcdaniels MD Specialty Plant Supervisor Becky Rangel RN Estimated Blood Loss 50 Findings Consistent with Post-Op Diagnosis Anesthesia Type General Complications none Disposition Accompanied Patient To Recovery: Yes Disposition: PCU
[2019-09-04] MEDS: fentaNYL citrate 100 MCG/2 ML VIAL IV PRN ×3 (21:09→21:23)
[2019-09-04] MEDS ORDERED: METOCLOPRAMIDE HCL INJ 5 MG/ML 2 ML VIAL IV PRN (21:12)
[2019-09-04] MEDS ORDERED: OXYCODONE/ACETAMINOPHEN 5mg/325mg TAB PO PRN ×2 (21:12)
[2019-09-04] MEDS ORDERED: MoRPHine SULFATE 2 MG/ML CARP IV PRN (21:12)
[2019-09-04] MEDS ORDERED: MoRPHine SULFATE 4 MG/ML 1 ML CARP\\VIAL IV PRN (21:12)
[2019-09-04] MEDS ORDERED: IBUPROFEN 600 MG TAB PO PRN (21:12)
--- NOTE | 2019-09-04 21:49 | Anesthesiology Progress Note ---
Date of Service September 04, 2019 Anesthesia Post Procedure Vital Signs Vital Signs: Temp Pulse Pulse Pulse Resp BP BP 09/04/19 21:40 89 19 133/81 09/04/19 21:35 37.3 C 84 14 122/88 09/04/19 21:25 88 17 127/89 09/04/19 21:15 86 17 121/93 09/04/19 21:05 36.6 C 84 15 130/81 09/04/19 16:02 36.8 C 80 18 128/80 09/04/19 07:47 37 C 81 18 135/88 09/04/19 00:00 36.9 C 84 18 122/86 Pulse Ox 09/04/19 21:40 98 09/04/19 21:35 95 09/04/19 21:25 97 09/04/19 21:15 100 09/04/19 21:05 100 09/04/19 16:02 94 09/04/19 07:47 100 09/04/19 00:00 Pain Intensity Back: Pain Intensity: 9 Abdomen: Pain Intensity: 3 Transfer of Care Handoff Completed per policy Notes Mental Status: alert / awake / arousable Patient Amnestic to Procedure: Yes Nausea / Vomiting: adequately controlled Pain: adequately controlled Airway Patency, RR, SpO2: stable & adequate BP & HR: stable & adequate Hydration State: stable & adequate Anesthetic Complications: no major complications apparent
[2019-09-04] MEDS ORDERED: RIZATRIPTAN BENZOATE 10 MG TAB PO PRN (21:56)
[2019-09-04] MEDS ORDERED: TIZANIDINE HCL 4 MG TABLET PO PRN (21:56)
[2019-09-04] MEDS ORDERED: ONDANSETRON 4 MG OD TAB PO PRN (21:56)
[2019-09-04] MEDS ORDERED: metroNIDAZOLE 500 MG TAB PO SCH (22:30)
[2019-09-04] MEDS ORDERED: ACETAMINOPHEN 325 MG TAB PO PRN (22:49)
[2019-09-04] MEDS ORDERED: KETOROLAC 30 MG/ML VIAL IV PRN (22:49)
[2019-09-05] MEDS: TIZANIDINE HCL 4 MG TABLET PO PRN ×3 (01:45→14:06)
--- NOTE | 2019-09-05 03:13 | Operative Report (OR) ---
DATE OF OPERATION: 09/04/2019 PREOPERATIVE DIAGNOSES: The patient is a 34-year-old status post premature rupture of membranes and delivery in the second trimester at 17 weeks on 08/30/2019. Admitted for endometritis and ultrasound suggesting retained products of conception/placenta. POSTOPERATIVE DIAGNOSES: The patient is a 34-year-old status post premature rupture of membranes and delivery in the second trimester at 17 weeks on 08/30/2019. Admitted for endometritis and ultrasound suggesting retained products of conception/placenta. PROCEDURE: Exam under anesthesia, suction of uterine contents, dilatation and curettage under ultrasound guidance. SURGEON: Marleen Mcdaniels MD FLOORING MACHINE FEEDER: Ifeoma Rangel RN. ESTIMATED BLOOD LOSS: 50 mL. ANESTHESIA: General LMA, Dr. Thomason. COMPLICATIONS: None. DRAINS: Straight catheter drained 400 mL of clear urine. FINDINGS: Exam under anesthesia revealed 12-14 size uterus, nonpalpable adnexa and products of conception/placenta at the cervical os. DESCRIPTION OF PROCEDURE: The patient was taken to the operating room where general anesthesia was given without difficulty. She was placed in dorsal lithotomy position, prepared and draped in usual sterile fashion. Exam under anesthesia was done with above findings. A speculum was placed in the patient's vagina. Cervix was visually dilated to about 1-2 cm. There were pieces of placenta/products of conception at cervical os. Those were removed with the polyp forceps and then polyp forceps was introduced into the lower uterine cavity under ultrasound guidance and more pieces of placenta were removed and then ultrasound was repeated and there were still a thickened area on the upper endometrium and fundal area. Then a 10 mm suction tip was introduced from cervix into the uterine cavity under ultrasound guidance. I and bi technical lead was able to see the tip of suction at the fundus and the uterine cavity was suctioned in a clockwise direction and suction tip was taken out and bringing a moderate amount of products of conception/tissue. This was repeated 3 times under ultrasound guidance. No more tissues but just blood was coming. Then with a small sharp curette, uterine cavity was curetted under ultrasound guidance in its entirety until the uterine cry sensation was felt and ultrasound confirmed that uterine cavity was empty, endometrial lining was very thin and symmetric. No suspicious products of conception and then procedure was ended. Uterus was massaged and found to be firm about -8-10 weeks' size and bleeding was minimal. She was given Methergine and Pitocin by anesthesiology team. The instruments were removed. The bleeding from tenaculum site was controlled with pressure and Monsel solution. The patient was cleaned, taken out from lithotomy position, taken to recovery room in stable condition. No complications happened and I was present during whole procedure. At the end of the procedure, sponge, needle, instrument count was correct x3. I attest to the content of the Intraoperative Record and any orders documented therein. Any exceptions are noted below. SURJIT
[2019-09-05] MEDS: SODIUM CHLORIDE 0.9% 1000ML 1,000 ML IV SCH (04:35)
[2019-09-05] MEDS: METHYLERGONOVINE MALEATE 0.2 MG TAB PO SCH ×4 (05:19→15:14)
[2019-09-05 06:58] LABS: Mean Corpuscular Hgb Conc 29.8 g/dL (32-36)
[2019-09-05 07:09] LABS: Hematocrit (blood only) 28.5 % (37-47); Hemoglobin 8.5 g/dL (12.0-16.0); Mean Corpuscular Hemoglobin 20.9 pg (25-34); RDW Standard Deviation 42.8 fL (36.4-46.3); Red Blood Count 4.07 M/uL (4.2-5.4); White Blood Count 3.55 K/uL (4.8-10.8)
[2019-09-05 07:27] LABS: Platelet Count 160 K/uL (130-400)
[2019-09-05 07:28] LABS: Basophils # (auto) 0.01 K/uL (0-0.2); Basophils % (auto) 0.3 %; Eosinophils # (auto) 0.06 K/uL (0-0.5); Eosinophils % (auto) 1.7 %; Immature Granulocytes # (auto) 0.05 K/uL (0.00-0.02); Immature Granulocytes % (auto) 1.4 %; Lymphocytes # (auto) 0.92 K/uL (1.2-3.4); Lymphocytes % (auto) 25.9 %; Monocytes # (auto) 0.25 K/uL (0.11-0.59); Neutrophils # (auto) 2.26 K/uL (1.4-6.5); Neutrophils % (auto) 63.7 %; Platelet Estimate Normal (Normal); RBC Morphology Unremarkable
--- NOTE | 2019-09-05 07:48 | Ultrasound Report ---
Study: Ultrasound guidance HISTORY: Retained products of conception IMPRESSION: Ultrasonic assistance was provided for intraoperative procedure. Electronically signed by: Kenney Wade M.D. 09/05/2019 7:47 AM
--- NOTE | 2019-09-05 08:08 | Gynecologic Progress Note ---
Date of Service September 05, 2019 Assessment & Plan Admission and Anticipated Discharge Date Admission Date: September 01, 2019 Anticipated date of discharge: 09/02/19 Subjective Doing better no pain or bleeding passing gas iesha diet Physical Exam Constitutional: WD/WN, vitals as above comfortable abdomen soft no edema neg Bear's for d/c f/u in 1 week in office Results & Data ([facility]) Vital Signs (Past 12 Hours) Vital Signs Temp Pulse Pulse Pulse Resp BP BP 09/05/19 04:30 36.7 C 73 17 109/75 09/05/19 01:30 130/87 09/05/19 00:10 36.9 C 88 17 140/97 09/04/19 23:20 36.9 C 89 20 138/77 09/04/19 22:40 36.8 C 86 18 129/86 09/04/19 22:10 36.8 C 85 20 133/86 09/04/19 21:55 37.0 C 88 20 128/89 09/04/19 21:40 89 19 133/81 09/04/19 21:35 37.3 C 84 14 122/88 09/04/19 21:25 88 17 127/89 09/04/19 21:15 86 17 121/93 09/04/19 21:05 36.6 C 84 15 130/81 Pulse Ox 09/05/19 04:30 99 09/05/19 01:30 09/05/19 00:10 97 09/04/19 23:20 97 09/04/19 22:40 98 09/04/19 22:10 98 09/04/19 21:55 99 09/04/19 21:40 98 09/04/19 21:35 95 09/04/19 21:25 97 09/04/19 21:15 100 09/04/19 21:05 100
[2019-09-05] MEDS: METHADONE ORAL SOLN 2 MG/ML PO SCH (08:52)
[2019-09-05] MEDS: GABAPENTIN 400 MG CAP PO SCH ×2 (08:52→14:06)
[2019-09-05] MEDS: FERROUS SULFATE 325 MG TAB PO SCH (08:52)
[2019-09-05] MEDS: PANTOprazole 40 MG TAB PO SCH (08:53)
[2019-09-05] MEDS ORDERED: GABAPENTIN 400 MG CAP PO SCH (09:00)
[2019-09-05] MEDS ORDERED: TOPIRAMATE 50 MG TAB PO SCH (09:00)
[2019-09-05] MEDS ORDERED: METHADONE PO SCH (09:00)
[2019-09-05] MEDS ORDERED: PANTOprazole 40 MG TAB PO SCH (09:00)
[2019-09-05] MEDS ORDERED: NON-FORMULARY MEDICATION (Ferrous Sulfate 325 MG) PO SCH (09:00)
[2019-09-05] MEDS ORDERED: PRENATAL VITAMIN 1 TAB PO SCH (09:00)
--- NOTE | 2019-09-05 15:16 | Communication Note ---
Date of Service: September 04, 2019 Case discussed with OB-AIR ANALYSIS ENGINEERING TECHNICIAN Dr. Zarco for Neutropenia. Pt WBC dropped from 4.15 to 2.54. Low WBC was due to IV abx (received IV Zosyn in the ER, then starting on IV Unasyn). No neutrophils and bands noted on differential and blood cultures no growth. Pt is afebrile. Recommended to change antibiotic to a different class of antibiotic that is less likely to cause neutropenia. recommend to check CBC in 1 week. Pt was not on the floor. She went down for ultrasound. Dr. Zarco would cancel the consult. Please call or consult us if WBC worsening or pt become febrile. MD Ld
--- NOTE | 2019-09-10 13:11 | Discharge Summary (DS) ---
DETAILS OF ADMISSION: The patient is a 34-year-old female who was admitted on 09/01/[address] Caraballo due to endometritis. She delivered in second trimester at 17 weeks on 08/30/2019 in [facility]. She was discharged the next day. 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 She was admitted for endometritis. Ultrasound suggesting products of conception and she was started IV on antibiotics. On day 2 the patient continued on IV antibiotics and she was given Cytotec to pass the products of conception. On day 3 of admission, 09/03/2019, the patient was doing well. Her hemoglobin was 7.9. Vital signs stable, afebrile. She was continued on IV antibiotics. On day 4, 09/04/19, when I came to take call she was doing well. She reported passing small clots the day before. She was afebrile. Vital signs are stable. She wanted to be discharged. We repeated an ultrasound which showed 3.2 cm thickened area in the endometrial cavity suggesting products of conception. I spoke about the options of either expectant management or Cytotec therapy or surgery with suction of products and D&C. She desired to go forward with surgery. She was taken to the OR on 09/04/2019 and had surgery of suction of uterine contents, D&C under ultrasound guidance. Her surgery was uncomplicated and she did well postop. No bleeding, no pain. Vital signs stable, afebrile. She was discharged home on 09/05/[address] Caraballo. Discharge instructions were given. Prescriptions were written for pain and antibiotic. She is to be seen in a week in the office. All questions were answered.
== END 2019-09-05 14:50 | disposition home or self-care (01) | DRG 779 ==
LOC: ED 16:08 → 4S2 22:36